=== PATIENT | female | born 1945 | race African-American/Black ===

== ENCOUNTER → 2016-11-25 | Emergency (ER) | payer MEDICARE, OTHER ==
[~2016-11-25] VITALS: Ht 167.6 cm; Wt 77.1 kg
[~2016-11-25] MED LIST: ALBUTEROL SULF8.5 GM INH; HUMALOG100 UNIT/4 SUBQ; KEFLEX500 MG ORAL; LANTUS SOL100 UNIT/1 SUBQ; UNOBMED; high blood pressure
[2016-11-25 10:21] VITALS: BP 195/106
== END | disposition left against medical advice (07) ==
LOC: EMR 11:09
DX: R21 Rash and other nonspecific skin eruption (principal); Z53.21 Procedure and treatment not carried out due to patient leaving prior to being seen by health care provider
CPT/HCPCS: 99281

== ENCOUNTER 2018-03-09 03:31 | Inpatient (IN) | payer MEDICARE, MEDICAID ==
[~2018-03-09] VITALS: Ht 167.6 cm; Wt 83.9 kg
--- NOTE | 2018-03-09 03:36 | Emergency Room Report ---
History of Present Illness General Source: Patient Present Illness HPI Is a 72-year-old female with history diabetes and high blood pressure. She presents with chief complaint of left leg numbness. She woke up not having feeling to her left foot. Also said pain and numbness tracking up her left leg. No trauma. Able to walk per EMS. She thought her blood sugar was high so she called 911. They said that her blood sugars in the 130s. Her blood pressure however was very high. It was over 220 systolic. Patient has no headache, chest pain, shortness of breath or urinary complaint. Allergies: Coded Allergies: No Known Allergies (Unverified , 03/13/13) Patient History Past Medical History: see triage record, old chart reviewed, DM, HTN Past Surgical History: other Pertinent Family History: none Social History: Denies: smoking Now: No Immunizations: other Reviewed Nursing Documentation: PMH: Agreed; PSxH: Agreed Nursing Documentation-PMH Hx Hypertension: Yes Hx Diabetes: Yes Review of Systems Eye: Denies: eye pain, blurred vision ENT: Denies: ear pain, nose congestion, throat swelling Respiratory: Denies: cough, shortness of breath Cardiovascular: Denies: chest pain, palpitations Gastrointestinal: Denies: abdominal pain, diarrhea, nausea, vomiting Musculoskeletal: Denies: back pain, joint pain Skin: Denies: rash Neurological: Denies: headache, numbness Endocrine: Denies: increased thirst, increased urine Hematologic/Lymphatic: Denies: easy bruising All Other Systems: negative except mentioned in HPI Physical Exam vitals with high blood pressure Sp02 EP Interpretation: reviewed, normal General Appearance: well appearing, no apparent distress, alert Head: normocephalic, atraumatic Eyes: bilateral eye PERRL, bilateral eye EOMI ENT: hearing grossly normal, normal pharynx Neck: full range of motion, supple, no meningismus Respiratory: chest non-tender, lungs clear, normal breath sounds Cardiovascular #1: regular rate, rhythm, no murmur Gastrointestinal: normal bowel sounds, non tender, no mass, no organomegaly, no bruit, non-distended Musculoskeletal: back normal, gait/station normal, normal range of motion, other - Decreased sensation to the left foot Neurologic: alert, oriented x3, responsive Psychiatric: mood/affect normal Skin: warm/dry Medical Decision Making Diagnostic Impression: Primary Impression: Paresthesia and pain of left extremity Additional Impressions: Hypertension Qualified Codes: I10 - Essential (primary) hypertension Anxiety ER Course Patient presents with left leg foot numbness. Initially she told me she woke up with it but later said that it has been going on for days. When registration came in to get some information regarding insurance, she became very agitated. She didn't complaining of feeling shortness of breath and felt swollen. She was also agitated that her daughter will call her back. I did speak with her daughter on the phone. She said that her mom has this problem frequently. She would go to the hospital for high blood pressure especially when she gets very agitated. She would never stay and always leave. She does not know if her mom is taking her blood pressure medication. Also said that she's been complaining of numbness to her feet for a while now. her blood pressures improved. No evidence of end organ damage. Pt insisted that this numbness in her left leg and foot is new. I will contact Dr. Ingram for admission. Lab Results Impression labs unremarkable. EKG Diagnostic Results Rate: normal Rhythm: NSR ST Segments: no acute changes Rhythm Strip Diag. Results Rhythm Strip Time: 05:24 EP Interpretation: yes Rate: 100 Rhythm: NSR, no PVC's, no ectopy Chest X-Ray Diagnostic Results Chest X-Ray Diagnostic Results : Chest X-Ray Ordered: Yes # of Views/Limited/Complete: 1 View Indication: Shortness of Breath EP Interpretation: Yes Interpretation: no consolidation, no effusion, no pneumothorax, no acute cardiopulmonary disease Impression: No acute disease Electronically Signed by: Nilson Santana MD CT/MRI/US Diagnostic Results CT/MRI/US Diagnostic Results : Imaging Test Ordered: Ct head Impression Neg per radiologist. Status: improved Disposition: ADMITTED INPATIENT Condition: Serious NILSON SANTANA M.D. Mar 09, 2018 03:36
[2018-03-09 03:51] VITALS: BP 191/100
[2018-03-09 04:09] LABS: APPEARANCE,URINE CLEAR; BILIRUBIN, URINE NEGATIVE (NEGATIVE); COLOR,URINE PALE YELLOW; GLUCOSE, URINE (UA) NEGATIVE (NEGATIVE); KETONES,URINE NEGATIVE (NEGATIVE); NITRITE,URINE NEGATIVE (NEGATIVE); PH,URINE 6 (4.5-8.0); PROTEIN,URINE 1+ (NEGATIVE); UROBILINOGEN,URINE NORMAL MG/DL (0.0-1.0)
[2018-03-09 04:17] LABS: BASOPHILS % (AUTO) 1.4 % (0.0-2.0); HEMATOCRIT 44.2 % (37.0-47.0); HEMOGLOBIN 14.9 G/DL (12.0-16.0); LYMPHOCYTES % (AUTO) 49.4 % (20.0-45.0); MEAN CORPUSCULAR VOLUME 90 FL (80-99); MONOCYTES % (AUTO) 8.1 % (1.0-10.0); NEUTROPHILS % (AUTO) 36.1 % (45.0-75.0); PLATELET COUNT 213 K/UL (150-450); RED BLOOD COUNT 4.91 M/UL (4.20-5.40); RED CELL DISTRIBUTION WIDTH 13.3 % (11.6-14.8); WHITE BLOOD COUNT 6.5 K/UL (4.8-10.8)
[2018-03-09 04:30] LABS: LEUKOCYTE ESTERASE ,URINE 2+ (NEGATIVE)
[2018-03-09 04:38] LABS: ANION GAP 12 mmol/L (5-15); BLOOD UREA NITROGEN 12 mg/dL (7-18); CALCIUM 9.1 MG/DL (8.5-10.1); CARBON DIOXIDE 24 MMOL/L (21-32); CHLORIDE 105 MMOL/L (98-107); CREATININE 0.9 MG/DL (0.55-1.30); POTASSIUM 3.8 MMOL/L (3.5-5.1); SODIUM 141 MMOL/L (136-145)
[2018-03-09 04:51] VITALS: BP 171/100
[2018-03-09] MEDS ORDERED: Albuterol ud Inhalation HHN ONE (05:00)
[2018-03-09] MEDS ORDERED: LORazepam Inj 2mg/ml 1ml IV ONE (05:15)
[2018-03-09 05:51] VITALS: BP 130/64
[2018-03-09] MEDS ORDERED: cefTRIAXone 1 GM in NS 55 ML IVPB ONE (06:30)
[2018-03-09] MEDS ORDERED: Labetalol 5mg/ml 20ml vial IV ONE ×2 (06:30→06:45)
[2018-03-09 06:51] VITALS: BP 126/74
[2018-03-09] MEDS ORDERED: Norco 5mg/325mg tab ORAL PRN (08:45)
[2018-03-09] MEDS ORDERED: Heparin 5000 units/ml inj SUBQ SCH (09:00)
[2018-03-09] MEDS ORDERED: GABAPENTIN400 MG ORAL (09:40)
[2018-03-09] MEDS ORDERED: CRESTOR10 M2 ORAL (09:40)
[2018-03-09] MEDS ORDERED: MULTIVITAMINS1 EAC2 ORAL (09:40)
[2018-03-09] MEDS ORDERED: LOSARTAN POTASS50 MG ORAL (09:40)
[2018-03-09] MEDS ORDERED: OMEPRAZOLE20 M2 ORAL (09:40)
--- NOTE | 2018-03-09 09:45 | Diagnostic Imaging Report ---
Indication: Headache Technique: Contiguous 5 mm thick transaxial imaging of the head obtained in a Siemens Sensation [address] scanner. Soft tissue and bone windows generated. Automatic Exposure Control was utilized. Total Dose length Product (DLP): 1330.[address] Dose Index Volume (CTDIvol): 70.38 mGy Comparison: none Findings: There is moderate prominence of the ventricles, basal cisterns, and cerebral sulci consistent with atrophy. Moderate, nonspecific, white matter hypoattenuation is noted throughout the brain consistent with chronic small vessel disease. There is no obvious midline shift, edema, acute hemorrhage, mass effect, or abnormal extra-axial fluid collections. Much of the brain is not evaluated adequately due to motion. Bones and extra osseous soft tissues are unremarkable. Impression: No obvious acute intracranial bleed, mass effect or edema. Moderate atrophy of the brain. Evidence of chronic small vessel disease involving white matter tracts. The study is nearly nondiagnostic because of severe motion and is a very limited. [facility] has communicated the preliminary results to the Emergency Department. Their findings are largely concordant with this report. The CT scanner at [facility] is accredited by the [employer] and the scans are performed using dose optimization techniques as appropriate to a performed exam including Automatic Exposure control.
[2018-03-09] MEDS ORDERED: 1/2NS w/KCl 20mEq 1000ml 1,000 ML IV SCH (10:00)
[2018-03-09] MEDS ORDERED: cefTRIAXone 1 GM in D5W 110 ML IVPB SCH (10:00)
--- NOTE | 2018-03-09 10:34 | Diagnostic Imaging Report ---
Indication: Dyspnea Comparison: None A single view chest radiograph was obtained. Findings: No definite infiltrate or pulmonary vascular congestion identified. The heart is enlarged. The aorta is mildly enlarged consistent with atherosclerotic vascular disease. The bones are osteopenic. Impression: No acute disease
[2018-03-09] MEDS ORDERED: NovoLOG Insulin Flexpen SUBQ SCH (11:30)
[2018-03-09 12:09] VITALS: BP 143/73
--- NOTE | 2018-03-09 14:59 | Cardiology Report ---
APPROVED REPORT EKG Measurement Heart [id number] Sin[address] abnormality Abnormal ECG
[2018-03-10] MEDS ORDERED: Losartan 50mg tab ORAL SCH (09:00)
--- NOTE | 2018-03-10 09:00 | History & Physical ---
History and Physical History & Physicial Patient left AMA before being seen Neris Whittington NP Mar 10, 2018 09:00
--- NOTE | 2018-03-10 09:00 | Discharge Summary ---
Discharge Summary Discharge Summary _ DATE OF ADMISSION: 03/09/2018 DATE OF DISCHARGE: 03/09/2018 BRIEF HOSPITAL COURSE: Patient is a 72-year-old female, who presented to ED via EMS due to complaints of left leg numbness. She stated she woke up and there was numbness on the left foot tracking up the left leg. She denied trauma She was unable to walk per EMS. She has medical history of diabetes and hypertension. Per EMS report blood pressure was very high in the 220 systolic. She denied chest pain, shortness of breath or headache. On evaluation at ED, blood pressure was elevated to 190/100. She was given Apresoline. Blood work did not show any leukocytosis, troponin was negative. Urine toxicology negative. Urinalysis with 10-15 WBC, 2+ leukocyte esterase, negative nitrite. She underwent head CT that showed evidence of chronic small vessel disease, no obvious acute intracranial bleed, mass effect or edema. Blood pressure was still elevated, she was given IV labetalol. Patient was admitted to the floor, however, full treatment was not carried out as patient left AGAINST MEDICAL ADVICE. FINAL DIAGNOSES: Paresthesia and pain of left lower extremity Hypertensive urgency Anxiety DISPOSITION: Patient left AGAINST MEDICAL ADVICE. I have been assigned to dictate discharge summary on this account, and I was not involved in the patient's management. Neris Whittington NP Mar 10, 2018 09:00
== END 2018-03-09 13:00 | disposition left against medical advice (07) | DRG 556 ==
LOC: EDUNIT# 03:31 → EDBD 03:31 → EMR 03:43 → EDBEDREQ 06:06 → 4W 06:21 → EDBEDREQ 06:43
DX: M79.605 Pain in left leg (principal); R20.2 Paresthesia of skin; I16.0 Hypertensive urgency; F41.9 Anxiety disorder, unspecified; E11.9 Type 2 diabetes mellitus without complications
CPT/HCPCS: 36415; 70450; 71045; 80048; 80307; 81001; 82962; 83880; 84484; 85025; 87086; 93005; 94640; J1815

== ENCOUNTER 2019-10-17 13:53 | Emergency (ER) | payer MEDICARE, OTHER ==
[~2019-10-17] VITALS: Ht 170.2 cm; Wt 72.6 kg
[2019-10-17] VITALS (9 sets, daily range): BP systolic 122–160; BP diastolic 68–77
[~2019-10-17 13:53] MED LIST changes: +CRESTOR10 M2 ORAL; +GABAPENTIN400 MG ORAL; +LOSARTAN POTASS50 MG ORAL; +MULTIVITAMINS1 EAC2 ORAL; +OMEPRAZOLE20 M2 ORAL
--- NOTE | 2019-10-17 14:20 | NUR ---
ED Nurse Note: pt tolerates iv start and labs well. presents as per triage. pt unresponsive to painful stimuli. left hand turned inward. lungs cta and resp effort even and regular. no vomiting. pt with cool skin, rectal temp done and warm blankets applied after 95.5 rectal temp. no drooling, no seizure activity noted. no trauma noted to pt.
[2019-10-17 14:29] LABS: HEMATOCRIT 54.1 % (37.0-47.0); HEMOGLOBIN 17.2 G/DL (12.0-16.0); MEAN CORPUSCULAR VOLUME 96 FL (80-99); PLATELET COUNT 231 K/UL (150-450); RED BLOOD COUNT 5.62 M/UL (4.20-5.40); RED CELL DISTRIBUTION WIDTH 13.8 % (11.6-14.8)
[2019-10-17 14:46] LABS: ANION GAP 28 mmol/L (5-15); BLOOD UREA NITROGEN 55 mg/dL (7-18); CALCIUM 10.8 MG/DL (8.5-10.1); CARBON DIOXIDE 12 MMOL/L (21-32); CHLORIDE 103 MMOL/L (98-107); CREATININE 2.2 MG/DL (0.55-1.30); POTASSIUM 5.9 MMOL/L (3.5-5.1); SODIUM 143 MMOL/L (136-145)
[2019-10-17 14:47] LABS: ALANINE AMINOTRANSFERASE 46 U/L (12-78); ALBUMIN 4.5 G/DL (3.4-5.0); ALBUMIN/GLOBULIN RATIO 1.1 (1.0-2.7); ALKALINE PHOSPHATASE 98 U/L (46-116); ASPARTATE AMINO TRANSFERASE 90 U/L (15-37); BILIRUBIN,TOTAL 0.7 MG/DL (0.2-1.0)
--- NOTE | 2019-10-17 14:49 | Emergency Room Report ---
History of Present Illness General Chief Complaint: Altered Level of Consciousness Source: Patient Present Illness HPI This patient is brought in by EMS from home. All history is obtained from EMS personnel as the patient is altered and unable to give any type of history. Per report, the patient had not been heard from since yesterday morning over 24 hours ago. The patient was found minimally responsive by family. There is no report of any recent illness. The patient localizes to pain but is otherwise unable to give any type of history secondary to her mental status. She does have a history of diabetes, CVA with left sided weakness, hypertension. Allergies: Coded Allergies: No Known Allergies (Unverified , 03/13/13) Patient History Past Medical History: see triage record, DM, HTN, CVA/TIA, seizures Past Surgical History: unable to obtain Pertinent Family History: unable to obtain Reviewed Nursing Documentation: PMH: Agreed; PSxH: Agreed Nursing Documentation-PMH Past Medical History: No History, Except For Hx Hypertension: Yes Hx Diabetes: Yes Hx Cancer: No Hx Gastrointestinal Problems: No Hx Neurological Problems: No Hx Cerebrovascular Accident: Yes - LEFT SIDE RESIDUAL DEFICIT Hx Seizures: Yes Review of Systems All Other Systems: limited Physical Exam Vital Signs Date Time Temp Pulse Resp B/P (MAP) Pulse Ox O2 Delivery O2 Flow Rate FiO2 10/17/19 13:49 99.9 136 20 106/80 (89) 100 Room Air Sp02 EP Interpretation: reviewed, normal General Appearance: no apparent distress, other - Minimally responsive. Localizes to pain only. Head: normocephalic, atraumatic Eyes: bilateral eye normal inspection, bilateral eye PERRL ENT: normal ENT inspection, normal pharynx, no angioedema Neck: normal inspection, full range of motion, supple/symm/no masses Respiratory: chest non-tender, lungs clear, normal breath sounds, no respiratory distress, no retraction, no accessory muscle use, speaking full sentences Cardiovascular #1: regular rate, rhythm, no edema Gastrointestinal: normal inspection, soft, non-distended Rectal: deferred Musculoskeletal: back normal, normal range of motion, non-tender Neurologic: other - Withdrawls from pain. Skin: no rash, normal color, other - See RN skin exam Medical Decision Making Diagnostic Impression: Primary Impression: CVA (cerebral vascular accident) Additional Impressions: Hyperosmolar hyperglycemic coma due to diabetes mellitus without ketoacidosis Lactic acid acidosis Renal failure Dehydration Elevated troponin NSTEMI (non-ST elevated myocardial infarction) CHF (congestive heart failure) Atrial fibrillation with rapid ventricular response ER Course This patient was found to have a very large right sided cerebral infarct. The patient also had a blood sugar over 800 with a lactic acidosis. She is in renal failure with an elevated troponin that meets criteria for NSTEMI. The patient's GCS varied from 6-8. Given the very large frontal CVA and the patient 's critical co-existing medical conditions to include hyperosmolar hyperglycemic syndrome, renal failure, atrial fibrillation with a rapid ventricular response and NSTEMI, I felt that the patient should be intubated to control her airway in the event of a decompensation. The patient was given aggressive IV fluid resuscitation for her hyperglycemia. I felt that I should not anticoagulate this patient given the findings on CT that showed a possible hemorrhagic transformation of the CVA. The patient was accepted by the neuro ICU at [facility] and was transferred in a critical condition. This patient is critically ill. This patient required complex medical decision- making, aggressive intervention, extensive laboratory workup and monitoring. Critical care time: 40 minutes. Laboratory Tests Test 10/17/19 14:00 10/17/19 15:28 10/17/19 15:30 White Blood Count 23.4 K/UL (4.8-10.8) *H Red Blood Count 5.62 M/UL (4.20-5.40) H Hemoglobin 17.2 G/DL (12.0-16.0) H Hematocrit 54.1 % (37.0-47.0) H Mean Corpuscular Volume 96 FL (80-99) Mean Corpuscular Hemoglobin 30.5 PG (27.0-31.0) Mean Corpuscular Hemoglobin Concent 31.7 G/DL (32.0-36.0) L Red Cell Distribution Width 13.8 % (11.6-14.8) Platelet Count 231 K/UL (150-450) Mean Platelet Volume 7.4 FL (6.5-10.1) Neutrophils (%) (Auto) % (45.0-75.0) Lymphocytes (%) (Auto) % (20.0-45.0) Monocytes (%) (Auto) % (1.0-10.0) Eosinophils (%) (Auto) % (0.0-3.0) Basophils (%) (Auto) % (0.0-2.0) Differential Total Cells Counted 100 Neutrophils % (Manual) 87 % (45-75) H Lymphocytes % (Manual) 6 % (20-45) L Monocytes % (Manual) 4 % (1-10) Eosinophils % (Manual) 0 % (0-3) Basophils % (Manual) 0 % (0-2) Band Neutrophils 3 % (0-8) Platelet Estimate Adequate Platelet Morphology Normal Polychromasia 1+ Macrocytosis 1+ Sodium Level 143 MMOL/L (136-145) Potassium Level 5.9 MMOL/L (3.5-5.1) H Chloride Level 103 MMOL/L (98-107) Carbon Dioxide Level 12 MMOL/L (21-32) L Anion Gap 28 mmol/L (5-15) H Blood Urea Nitrogen 55 mg/dL (7-18) H Creatinine 2.2 MG/DL (0.55-1.30) H Estimate Glomerular Filtration Rate mL/min (>60) Glucose Level 872 MG/DL (74-106) *H Lactic Acid Level 4.30 mmol/L (0.4-2.0) H 3.10 mmol/L (0.66-2.22) H Calcium Level 10.8 MG/DL (8.5-10.1) H Magnesium Level 2.8 MG/DL (1.8-2.4) H Total Bilirubin 0.7 MG/DL (0.2-1.0) Aspartate Amino Transferase (AST) 90 U/L (15-37) H Alanine Aminotransferase (ALT) 46 U/L (12-78) Alkaline Phosphatase 98 U/L (46-116) Troponin I 1.190 ng/mL (0.000-0.056) Total Protein 8.7 G/DL (6.4-8.2) H Albumin 4.5 G/DL (3.4-5.0) Globulin 4.2 g/dL Albumin/Globulin Ratio 1.1 (1.0-2.7) Acetone Level Positive-small (NEGATIVE) Arterial Blood pH 7.248 (7.350-7.450) Arterial Blood Partial Pressure CO2 24.6 mmHg (35.0-45.0) *L Arterial Blood Partial Pressure O2 94.5 mmHg (75.0-100.0) Arterial Blood HCO3 10.5 mmol/L (22.0-26.0) *L Arterial Blood Oxygen Saturation 96.3 % (95-100) Arterial Blood Base Excess -14.8 (-2-2) *L Naseem Test Positive EKG Diagnostic Results Rate: tachycardiac Rhythm: other - A.fib w/ RVR ST Segments: no acute changes Rhythm Strip Diag. Results EP Interpretation: yes Rate: 160's Rhythm: other - A.fib Chest X-Ray Diagnostic Results Chest X-Ray Diagnostic Results : Chest X-Ray Ordered: Yes # of Views/Limited/Complete: 1 View Indication: Other EP Interpretation: Yes Interpretation: other - Mild pulmonary congestion. Impression: Other - CHF Electronically Signed by: More Jones DO Last Vital Signs Date Time Temp Pulse Resp B/P (MAP) Pulse Ox O2 Delivery O2 Flow Rate FiO2 10/17/19 13:49 99.9 136 20 106/80 (89) 100 Room Air Disposition: XFER T-TRM HOSP Condition: Critical More Jones DO Oct 17, 2019 14:49
[2019-10-17 15:04] LABS: WHITE BLOOD COUNT 23.4 K/UL (4.8-10.8)
--- NOTE | 2019-10-17 15:15 | Diagnostic Imaging Report ---
Indication: Dyspnea Comparison: 03/09/2018 A single view chest radiograph was obtained. Findings: There is interstitial prominence within the lungs with prominent vascularity and heart size. Aorta is ectatic. Bones are osteopenic. No pleural effusions are appreciated. IMPRESSION: Suspected mild CHF. Correlate clinically
--- NOTE | 2019-10-17 15:32 | NUR ---
ED Nurse Note: back from ct scan. repeat lactic drawn, resp therapist here to draw abg. md aware of critical labs. tolerating ivf well. left hand noted to be turned inwards. family at bs md speaking with them and giving updates to status. eyes do flutter when family speaking to her.
--- NOTE | 2019-10-17 15:38 | NUR ---
ED Nurse Note: per family pt has been noncompliant with home meds for unk amt of time.
--- NOTE | 2019-10-17 15:43 | Diagnostic Imaging Report ---
Indication: Altered mental status Technique: Contiguous 5 mm thick transaxial imaging of the head obtained in a Siemens Sensation [address] scanner. Soft tissue and bone windows generated. Automatic Exposure Control was utilized. Total Dose length Product (DLP): 1355.[address] Dose Index Volume (CTDIvol): 62.7 mGy Comparison: none Findings: There is a moderate amount of low-attenuation edema within the right frontal temporal lobe extending into the basal ganglia. This is consistent with a subacute infarct. There is likely involvement of both the right middle cerebral artery territory (anterior branch of MCA) as well as the area of the brain fed by the right anterior cerebral artery. There is compression of the right lateral ventricle which is moderate. There is mild right to left midline shift of approximately 6 to 7 mm. There is effacement of the right sylvian fissure. There is effacement of multiple sulci that are involved. In addition there is suggestion of high attenuation within some of the cerebral sulci. The possibility of hemorrhagic transformation or acute blood within the sulci or involving the infarcted cortex is difficult to exclude. There is no hematoma per se. Generalized cerebral atrophy is noted. There is low-attenuation within white matter tracts consistent with chronic small vessel disease. There is moderate to severe cerebellar atrophy present. The osseous structures are unremarkable. Paranasal sinuses and mastoids appear clear as visualized. IMPRESSION: Large subacute infarct involving the territories fat by anterior branch right MCA as well as right KESHA. Query hemorrhagic transformation and subarachnoid blood in the infarcted territory. Edema, mass effect and mild right to left midline shift noted. Generalized atrophy of the cerebrum mild in degree. Moderate to severe cerebellar atrophy. Critical value communication. Findings were discussed via telephone with Dr. Jones via telephone 3:30 PM, 10/17/2019. The CT scanner at [facility] is accredited by the [employer] and the scans are performed using dose optimization techniques as appropriate to a performed exam including Automatic Exposure control.
[2019-10-17] MEDS ORDERED: levETIRAcetam 1,000mg/NS100ml 100 ML IVPB ONE (15:45)
--- NOTE | 2019-10-17 15:49 | NUR ---
face sheet and ct report faxed to [facility] . waiting for call back
--- NOTE | 2019-10-17 15:54 | NUR ---
ED Nurse Note: KEPPRA INFUSING. no changes in mental status
--- NOTE | 2019-10-17 16:05 | NUR ---
ED Nurse Note: pt with valenzuela cath inserted and pt moving right hand to painful stimuli. family aware of md plan to place ETT per md. vss.
--- NOTE | 2019-10-17 16:18 | NUR ---
ED Nurse Note: order to administer etomidate 20mg ivp for ett placement. vss 133/76 P133 RR20 O2 sat 100% ambu support
--- NOTE | 2019-10-17 16:19 | NUR ---
ED Nurse Note: md order rocuronium 50mg ivp
--- NOTE | 2019-10-17 16:19 | NUR ---
ED Nurse Note: pt did have some response and movement to rt, arm with ETT process before meds taking effect.
--- NOTE | 2019-10-17 16:20 | NUR ---
ED Nurse Note: pt with ETT 7.5 at [address] lipline. pt tolerates well. vss 144/77 P160 RR16 O2sat 99%
--- NOTE | 2019-10-17 16:50 | NUR ---
ED Nurse Note: belongings sent home with family list done
--- NOTE | 2019-10-17 17:07 | NUR ---
ED Nurse Note: [facility]
[2019-10-17 17:29] LABS: ANION GAP 22 mmol/L (5-15); BLOOD UREA NITROGEN 52 mg/dL (7-18); CALCIUM 9.3 MG/DL (8.5-10.1); CARBON DIOXIDE 13 MMOL/L (21-32); CHLORIDE 114 MMOL/L (98-107); CREATININE 1.7 MG/DL (0.55-1.30); POTASSIUM 5.2 MMOL/L (3.5-5.1); SODIUM 149 MMOL/L (136-145)
== END 2019-10-17 17:20 | disposition short-term general hospital (02) ==
LOC: EDBD 13:53 → EMR 14:42
DX: I63.521 Cerebral infarction due to unspecified occlusion or stenosis of right anterior cerebral artery (principal); I63.511 Cerebral infarction due to unspecified occlusion or stenosis of right middle cerebral artery; E11.01 Type 2 diabetes mellitus with hyperosmolarity with coma; E87.2 Acidosis; N19 Unspecified kidney failure; E86.0 Dehydration; I21.4 Non-ST elevation (NSTEMI) myocardial infarction; I50.9 Heart failure, unspecified; I11.0 Hypertensive heart disease with heart failure; I48.91 Unspecified atrial fibrillation; I69.854 Hemiplegia and hemiparesis following other cerebrovascular disease affecting left non-dominant side
CPT/HCPCS: 36415; 36600; 70450; 71045; 80048; 80053; 82009; 82803; 83605; 83735; 84484; 85007; 85025; 87040; 87181; 93005; 96361; 96374; 99291; J1953; J7030